=== PATIENT | female | born 1990 | race Caucasian/White ===

== ENCOUNTER 2019-02-27 20:27 | Emergency (ER) | payer OTHER ==
--- NOTE | 2019-02-27 21:15 | ED Physician Documentation ---
PD HPI UPPER EXT INJURY - Stated complaint Stated Complaint: RT HAND PX - Chief complaint Chief Complaint: Ext Problem - History obtained from History obtained from: Patient - History of Present Illness Location: Right, Finger (5th) Type of injury: Blunt / blow (states jammed it while moving items in her garage.) Where injury occurred: Home Timing - onset: Today Timing - duration: Hours (12) Timing - details: Gradual onset Pain level max: 7 Pain level now: 6 Improved by: Rest, Ice, Immobilization Worsened by: Moving, Palpating Associated symptoms: Swelling, Discolored. No: Weakness, Numbness, Tingling Contributing factors: No: Anticoagulated, Prior ortho surgery Recently seen: Not recently seen - Additonal information Additional information: pt is right handed Review of Systems : denies: Now EGA Neurologic: denies: Focal weakness, Numbness PD PAST MEDICAL HISTORY - Past Medical History Past Medical History: No - Past Surgical History Past Surgical History: Yes - Allergies Allergies/Adverse Reactions: Allergies Allergy/AdvReac Type Severity Reaction Status Date / Time No Known Drug Allergies Allergy Verified 02/27/19 20:39 - Living Situation Living Situation: reports: With family Living Arrangement: reports: At home - Social History Does the pt smoke?: No Smoking Status: Never smoker Does the pt drink ETOH?: Yes Does the pt have substance abuse?: No - Immunizations Immunizations are current?: Yes PD ED PE NORMAL - Vitals Vital signs reviewed: Yes - General General: Alert and oriented X 3, No acute distress - HEENT HEENT: Moist mucous membranes - Derm Derm: Warm and dry - Extremities Extremities: Other (R hand 5th digit. ecchymosis to the distal aspect. no subungual hematoma. NVI) - Neuro Neuro: Alert and oriented X 3 Results - Vitals Vitals: Vital Signs - 24 hr 02/27/19 02/27/19 20:37 21:52 Temperature 36.6 C Heart Rate 72 83 Respiratory 14 14 Rate Blood Pressure 123/71 112/67 O2 Saturation 100 100 - Rads (name of study) R 5th digit xray Radiology: Prelim report reviewed, EMP read contemporaneously, See rad report PD MEDICAL DECISION MAKING - ED course Complexity details: reviewed results, considered differential, d/w patient ED course: Placed in extension splint. Will follow up with PCP/ortho. NVI. Patient counseled regarding signs and symptoms for which I believe and urgent re- evaluation would be necessary. Patient with good understanding of and agreement to plan and is comfortable going home at this time This document was made in part using voice recognition software. While efforts are made to proofread this document, sound alike and grammatical errors may occur. Departure - Departure Disposition: 01 Home, Self Care Clinical Impression: Finger fracture, right Qualifiers: Encounter type: initial encounter Finger: little finger Fracture type: closed Phalanx: distal Fracture alignment: displaced Qualified Code(s): S62.636A - Displaced fracture of distal phalanx of right little finger, initial encounter for closed fracture Condition: Good Instructions: ED Fx Finger Closed Follow-Up: Too Ramires ARNP [Primary Care Provider] - Within 1 week Comments: Wear the splint until released by your doctor. Return if you worsen. You can use Motrin or Tylenol as needed for pain. Discharge Date/Time: 02/27/19 21:53
--- NOTE | 2019-02-27 21:33 | XRAY Report ---
Reason: bent out of place, bruising Procedure Date: 02/27/2019 Accession Number: [id number] / [id number] Procedure: XR - Finger(s) RT CPT Code: FULL RESULT: EXAM: RIGHT/LEFT 1st/2nd/3rd/4th/5th DIGIT RADIOGRAPHY EXAM DATE: 02/27/2019 09:18 PM. CLINICAL HISTORY: Bent out of place, bruising. COMPARISON: None. TECHNIQUE: 3 views. FINDINGS: Bones: An acute displaced avulsion fracture is seen through the dorsal margin of the base of distal phalanx of right fifth digit Joints: Mild fracture deformity seen at the IP of right fifth digit. No subluxations. Soft Tissues: Mild soft tissue swelling is seen overlying the fracture site. IMPRESSION: An acute displaced avulsion fracture through the dorsal margin of the base of distal phalanx of right fifth digit. Mild flexion deformity at the DIP. [facility]
[2019-02-27 21:53] VITALS: BP 112/67
== END 2019-02-27 21:53 | disposition home or self-care (01) ==
LOC: ED 20:27
DX: S62.636A Displaced fracture of distal phalanx of right little finger, initial encounter for closed fracture (principal); W22.8XXA Striking against or struck by other objects, initial encounter; Y93.89 Activity, other specified; Y92.008 Other place in unspecified non-institutional (private) residence as the place of occurrence of the external cause
CPT/HCPCS: 73140; 99283